=== PATIENT | male | born 1995 | race Caucasian/White ===

== ENCOUNTER 2021-10-29 14:17 | Emergency (ER) | payer MEDICAID ==
[~2021-10-29] VITALS: Ht 188 cm; Wt 116.0 kg
[2021-10-29] MEDS ORDERED: IBUPROFEN 600MG TABLET PO STA (15:52)
[2021-10-29 16:09] VITALS: BP 144/92
[2021-10-29] MEDS ORDERED: IBUP-2029 PO (16:36)
== END 2021-10-29 17:06 | disposition home or self-care (01) ==
LOC: ER 14:17
DX: S93.692A Other sprain of left foot, initial encounter (principal); S93.492A Sprain of other ligament of left ankle, initial encounter; W18.39XA Other fall on same level, initial encounter; Y93.89 Activity, other specified; Y92.89 Other specified places as the place of occurrence of the external cause; Y99.8 Other external cause status; J45.909 Unspecified asthma, uncomplicated; E11.9 Type 2 diabetes mellitus without complications; I10 Essential (primary) hypertension
CPT/HCPCS: 73610; 73630; 99284